=== PATIENT | female | born 1965 | race Caucasian/White ===

== ENCOUNTER 2017-02-12 09:00 | Emergency (ER) | payer OTHER ==
[~2017-02-12] VITALS: Ht 154.9 cm; Wt 74.8 kg
[~2017-02-12 09:00] MED LIST: B6/F1TAB PO; CHOL20002 PO; ESZO3TAB28 PO; LITH300T30 PO; LORA0.5T96 PO; NORG1TAB6 PO; OMEG500C PO; ROPI1TAB PO; TRAZ50TA15 PO
[2017-02-12] MEDS ORDERED: KETOROLAC TROMETHAMINE 60 MG/2 ML INJ. IM ONE (10:15)
[2017-02-12] MEDS ORDERED: diazePAM 5 MG TABLET PO ONE (10:15)
[2017-02-12] MEDS ORDERED: MORPHINE SULFATE 10 MG/ML VIAL. IM ONE (10:15)
[2017-02-12] MEDS ORDERED: FAMOTIDINE 20 MG TABLET. ONE (11:07)
[2017-02-12] MEDS ORDERED: LIDO:MAALOX:DONNATAL 1:1:1 15 ML SINGLE DOSE ONE (11:07)
[2017-02-12] MEDS ORDERED: LIDO:MAALOX:DONNATAL 1:1:1 15 ML SINGLE DOSE SWSW ONE (11:15)
[2017-02-12] MEDS ORDERED: FAMOTIDINE 20 MG TABLET. PO ONE (11:15)
--- NOTE | 2017-02-12 11:19 | RAD ---
AP and lateral lumbar spine radiographs 02/12/2017 Clinical history: Severe low back pain for last 2 days. AP and 2 lateral digital radiographs of lumbar spine were obtained. Mild S-shaped curvature of the thoracolumbar spine is seen. Surgical clips are seen within the right upper quadrant abdomen consistent with a cholecystectomy. Degenerative changes are seen involving the mid and lower lumbar disc spaces consisting of vertebral endplate sclerosis and minimal anterior and posterior vertebral body osteophyte formation. Degenerative changes are seen involving the facet joints of the lower lumbar spine. No fracture or subluxation is seen. Impression: Degenerative changes are seen involving the lumbar spine as outlined above. No acute osseous abnormality is seen.
[2017-02-12 11:21] VITALS: BP 121/76
--- NOTE | 2017-02-12 12:10 | PHYS DOC ---
Past Medical History Past Medical History: Anxiety, Bipolar, Depression, Endometriosis, GERD, Other Additional Past Medical Histor: damage to 2 disks in neck Past Surgical History: Appendectomy, Cholecystectomy, , Other Additional Past Surgical Histo: RT mastoidectomy x2, endometrial ablasion Alcohol Use: None Drug Use: None Adult General Chief Complaint Chief Complaint: BACK PAIN - NO INJURY [facility] HPI Patient is a 51 year old female with a history of arthritis, bipolar, endometriosis, anxiety, who presents today with right low back pain rated at 10 out of 10 worse on movement radiating to the lower abdomen bilaterally and right lower extremity that began 3 days ago. Patient states she has previous history of back pain with sciatica. Denies any trauma. Denies any loss of bowel bladder function. Denies any numbness or tingling to bilateral lower extremities. Review of Systems Review of Systems Constitutional: Denies fever or chills [] Eyes: Denies change in visual acuity, redness, or eye pain [] HENT: Denies nasal congestion or sore throat [] Respiratory: Denies cough or shortness of breath [] Cardiovascular: No additional information not addressed in HPI [] GI: Denies abdominal pain, nausea, vomiting, bloody stools or diarrhea [] : Denies dysuria or hematuria [] Musculoskeletal: Right low back pain radiating to the right lower extremity as well as lower abdomen Integument: Denies rash or skin lesions [] Neurologic: Denies headache, focal weakness or sensory changes [] Endocrine: Denies polyuria or polydipsia [] Current Medications Current Medications Current Medications Medications (Trade) Dose Ordered Sig/Gertrude Start Time Stop Time Status Last Admin Dose Admin Dexamethasone Sodium Phosphate (Decadron) 10 mg 1X ONCE 02/12/17 12:15 02/12/17 12:16 02/12/17 12:10 10 MG Diazepam (Valium) 5 mg 1X ONCE 02/12/17 10:15 02/12/17 10:16 DC 02/12/17 10:15 5 MG Famotidine (Pepcid) 20 mg STK-MED ONCE 02/12/17 11:07 02/12/17 11:08 DC Fentanyl Citrate (Fentanyl 2ml Vial) 50 mcg 1X ONCE 02/12/17 12:15 02/12/17 12:16 02/12/17 12:10 50 MCG Ketorolac Tromethamine (Toradol Im) 60 mg 1X ONCE 02/12/17 10:15 02/12/17 10:16 DC 02/12/17 10:15 60 MG Morphine Sulfate 5 mg 1X ONCE 02/12/17 10:15 02/12/17 10:16 DC 02/12/17 10:15 5 MG Multi-Ingredient Mouthwash/Gargle (Gi Cocktail Single Dose) 15 ml STK-MED ONCE 02/12/17 11:07 02/12/17 11:08 DC Allergies Allergies Allergies Coded Allergies Type Severity Reaction Last Updated Verified No Known Drug Allergies 03/18/14 No Physical Exam Physical Exam Constitutional: Well developed, well nourished, no acute distress, non-toxic appearance. [] HENT: Normocephalic, atraumatic, bilateral external ears normal, oropharynx moist, no oral exudates, nose normal. [] Eyes: PERRLA, EOMI, conjunctiva normal, no discharge. [] Neck: Normal range of motion, no tenderness, supple, no stridor. [] Cardiovascular:Heart rate regular rhythm, no murmur [] Lungs & Thorax: Bilateral breath sounds clear to auscultation [] Abdomen: Bowel sounds normal, soft, no tenderness, no masses, no pulsatile masses. [] Skin: Warm, dry, no erythema, no rash. [] Back: Diffuse paraspinal muscle tenderness to the right lumbar spine was on the right SI joint, no midline lumbar spine tenderness, no CVA tenderness. Positive right leg straight raises. Extremities: No tenderness tenderness, no cyanosis, no clubbing, ROM intact, no edema. [] Neurologic: Alert and oriented X 3, normal motor function, normal sensory function, no focal deficits noted. [] Psychologic: Affect normal, judgement normal, mood normal. [] Current Patient Data Vital Signs Vital Signs Date Time Temp Pulse Resp B/P (MAP) Pulse Ox O2 Delivery O2 Flow Rate FiO2 02/12/17 12:10 Room Air 02/12/17 11:21 77 22 121/76 (91) 96 02/12/17 09:20 98.2 98.2 EKG EKG [] Radiology/Procedures Radiology/Procedures [] Course & Med Decision Making Course & Med Decision Making Pertinent Labs and Imaging studies reviewed. (See chart for details) Patient is in the ED with pain consistent of sciatica. No cauda equina syndrome symptoms. Lumbar spine x-rays interpreted by radiologist were noted for arthritis otherwise no acute findings. Patient will be discharged with Valium, hydrocodone, naproxen and Medrol Dosepak. Follow-up with PCP in 1-2 weeks. Monica Disclaimer Dragon Disclaimer This electronic medical record was generated, in whole or in part, using a voice recognition dictation system. Departure Departure Impression: Primary Impression: Back pain Additional Impression: Sciatic nerve pain Disposition: HOME, SELF-CARE Condition: STABLE Referrals: NO PCP (PCP) followup with your doctor in 1 week Patient Instructions: Back Pain, Adult, Sciatica with Rehab-SportsMed Additional Instructions: You were seen for back pain with sciatica. You can apply heat to your lumbar spine, you can follow-up with your doctor in the next 1-2 weeks. Please return to the emergency room if symptoms worsen. Please do not drive or operate machinery on the Valium or hydrocodone. Scripts Diazepam (VALIUM) 10 Mg Tablet 10 MG PO TID, #15 TAB Prov: MARCY TURK APRN 02/12/17 Naproxen (NAPROXEN) 500 Mg Tablet.dr 1 TAB PO BID, #60 TAB 2 Refills Prov: MARCY TURK APRN 02/12/17 Methylprednisolone (MEDROL) 4 Mg Tab.ds.pk 1 PKG PO UD, #1 PKG Prov: FOXCAMELIAMARCY APRN 02/12/17 Hydrocodone Bit/Acetaminophen (HYDROCODONE-APAP 7.5-325 ) 1 Each Tablet 1-2 TAB PO PRN Q6HRS Y for PAIN, #20 TAB 0 Refills Prov: MARCY TURK APRN 02/12/17 Problem Qualifiers Primary Impression: Back pain Back pain location: low back pain Chronicity: acute Back pain laterality: right Sciatica presence: with sciatica Sciatica laterality: sciatica of right side Qualified Codes: M54.41 - Lumbago with sciatica, right side Additional Impression: Sciatic nerve pain Laterality: right Qualified Codes: M54.31 - Sciatica, right side MARCY TURK STEPHANIE Feb 12, 2017 12:10
[2017-02-12] MEDS ORDERED: fentaNYL PF VIAL 100 MCG/2 ML VIAL IM ONE (12:15)
[2017-02-12] MEDS ORDERED: DEXAMETHASONE SOD PHOS 20 MG/5 ML VIAL. IM ONE (12:15)
[2017-02-12] MEDS ORDERED: METH4TAB2 PO (12:18)
[2017-02-12] MEDS ORDERED: VALIUM10 MG PO (12:18)
[2017-02-12] MEDS ORDERED: NAPR500T8 PO (12:18)
[2017-02-12] MEDS ORDERED: HYDR-2762 PO (12:18)
--- NOTE | 2017-02-12 12:56 | EKG ---
[facility] [address] [place] [address] Test Date: 2017-02-12 Test Time: 11:11:14 Pat Name: CARYN LEWIS Department: Room: Gender: F [employer]: : 1965 Requested By: MARCY TRUK Order Number: [id number] Reading MD: Nicholas García Measurements Intervals [place] Rate: 77 P: -36 WV: 186 QRS: 59 QRSD: 82 T: 56 QT: 362 QTc: 411 Interpretive Statements SINUS RHYTHM Electronically Signed On 02-14-2017 11:12:57 CDT by Nicholas García
== END 2017-02-12 12:41 | disposition home or self-care (01) ==
LOC: ER 09:00
DX: M54.41 Lumbago with sciatica, right side (principal); R10.30 Lower abdominal pain, unspecified; K21.9 Gastro-esophageal reflux disease without esophagitis; F31.9 Bipolar disorder, unspecified; Z90.49 Acquired absence of other specified parts of digestive tract; Z98.890 Other specified postprocedural states
CPT/HCPCS: 72100; 93005; 96372; 99284; J1100; J1885; J2270; J3010